=== PATIENT | male | born 1995 | race Caucasian/White ===

== ENCOUNTER 2018-05-24 23:19 | Emergency (ER) | payer BC, MEDICAID ==
[2018-05-25] MEDS: LIDOCAINE 1% (MDV) 20 ML INJ SC (01:09)
[2018-05-25] MEDS: LIDOCAINE 1% (MPF) 30 ML INJ INJ (01:30)
== END 2018-05-25 01:34 | disposition home or self-care (01) ==
LOC: FTE 23:19
DX: L60.0 Ingrowing nail (principal); Z87.891 Personal history of nicotine dependence
CPT/HCPCS: 11765; 99283-25

== ENCOUNTER 2018-11-05 14:36 | Emergency (ER) | payer SELFPAY, BC | END 2018-11-05 16:44 | disposition home or self-care (01) | LOC: FTE 14:36 | DX: L60.0 Ingrowing nail (principal); Z87.891 Personal history of nicotine dependence | CPT/HCPCS: 99283 ==